=== PATIENT | male | born 2005 | race Caucasian/White ===

== ENCOUNTER 2024-01-22 16:53 | Emergency (ER) | payer MEDICAID, OTHER ==
[~2024-01-22] VITALS: Ht 172.7 cm; Wt 70.0 kg
[2024-01-22 16:59] VITALS: TEMP 98.8; O2SAT 100
[2024-01-22] MEDS ORDERED: TOPUD MT (17:11)
[2024-01-22] MEDS ORDERED: IBUP-1523 MT (17:11)
[2024-01-22 17:29] VITALS: BP 128/56; PULSE 80; RESP 16
[2024-01-22] MEDS: ACETAMINOPHEN 325MG TABLET PO ONE (17:29)
[2024-01-22] MEDS: IBUPROFEN 600MG TABLET PO ONE (17:29)
== END 2024-01-22 17:49 | disposition home or self-care (01) ==
LOC: ER 16:53
DX: R07.89 Other chest pain (principal)
CPT/HCPCS: 99283